=== PATIENT | male | born 1975 | race Native Hawaiian/Other Pacific Islander ===

== ENCOUNTER 2016-04-12 07:02 | Day surgery (SDC) | payer OTHER ==
[~2016-04-12] VITALS: Ht 182.9 cm; Wt 68.0 kg
== END 2016-04-12 10:00 | disposition home or self-care (01) ==
LOC: OR 07:02
PROC: 0DBN8ZZ Excision of Sigmoid Colon, Via Natural or Artificial Opening Endoscopic (ICD-10-PCS; principal; 2016-04-12)
PROC: 0W3P8ZZ Control Bleeding in Gastrointestinal Tract, Via Natural or Artificial Opening Endoscopic (ICD-10-PCS; 2016-04-12)
PROC: 0D5P8ZZ Destruction of Rectum, Via Natural or Artificial Opening Endoscopic (ICD-10-PCS; 2016-04-12)
DX: D12.5 Benign neoplasm of sigmoid colon (principal); K64.8 Other hemorrhoids; K92.1 Melena
CPT/HCPCS: J2001; J2704